=== PATIENT | female | born 1970 | race Caucasian/White ===

== ENCOUNTER 2016-11-11 18:37 | Emergency (ER) | payer MEDICAID ==
--- NOTE | 2016-11-11 19:16 | ER NURSING DOCUMENTATION ---
Nurse's Notes [facility] Name:Alis Coyle Age:45 yrs Sex:Female :1970 Arrival Date:11/11/2016 Time:18:37 Bed2 Private MD:Anil Garcia Diagnosis:Subconjunctival Hemorrhage (eye) Presentation: 11/11 18:42 Acuity: DENIS 3 sc1 19:08 Presenting complaint: Patient states: Pt poked herself in the left eye yesterday with rh her fake nail. Pt has subconjuctival hemorrhage. Transition of care: Home. The patient denies any loss of vision. 19:08 Method Of Arrival: Private Vehicle rh Triage Assessment: 19:10 General: Appears in no apparent distress, Behavior is cooperative. Pain: Denies pain. rh EENT: Eyes subconjuctival hemorrhage on the left eye. Sclera/Cornea are reddened in inner aspect of conjunctiva of left eye Oral mucosa is moist. Neuro: Level of Consciousness is awake, alert, obeys commands. Historical: - Allergies: No known drug Allergies; - Home Meds: 1. None - PMHx: HERNIATED DISC; - PSHx: None; - Tetanus: < 10 years. - Ebola Screening: : Patient negative for fever greater than or equal to 101.5 degrees Fahrenheit, and additional compatible Ebola Virus Disease symptoms. - Immunization history: Flu Vaccine None. - Social history: Smoking status: Patient states was never smoker of tobacco. Screenin:11 Infectious Disease Risk None. Abuse screen: Denies threats or abuse. Denies injuries rh from another. Nutritional screening: No deficits noted. Assessment: 19:11 See Triage Assessment done by same RN. rh Vital Signs: 18:48 BP 117 / 70; Pulse 97; Resp 14; Temp 98.2; Pulse Ox 90% on R/A; Weight 54.43 kg; Height em1 5 ft. 3 in. (160.02 cm); Pain 2/10; 18:48 Body Mass Index 21.26 (54.43 kg, 160.02 cm) em1 Visual Acuity: 19:11 Left Eye Visual acuity 20/30, ; Right Eye Visual acuity 20/40, ; Both Eyes Visual rh acuity 20/25; Without Lenses; ED Course: 18:38 Patient arrived in ED. em2 18:38 Anil Garcia is Private Physician. em2 18:42 Triage completed. ga1 19:00 Notified ED Physician of patient's arrival and chief complaint. Dr. Calloway notified. 19:02 Jose Calloway MD is Attending Physician. ga 19:04 Anil Garcia is Referral Physician. ga 19:08 Melva Hussein is Primary Nurse. rh 19:11 Valuables Given to family. Remains with patient Patient has correct armband on for rh positive identification. Bed in low position. Call light in reach. Administered Medications: No medications were administered Outcome: 19:04 Discharge ordered by . ga 19:15 Discharged to home ambulatory, with family. 19:15 Condition: stable 19:15 Discharge instructions given to patient, family, Instructed on discharge instructions, follow up and referral plans. Demonstrated understanding of instructions. 19:15 Patient left the ED. 05 09:30 Discharge F/U Call: Spoke with: patient. Are you having any pain? yes. Signatures: Ree English, RN RN [facility] [place] Agustina Perez, RN RN Jose Calloway MD MD ga [employer], [employer] 1 [employer], [facility]ene[employer] 2 Melva Hussein
--- NOTE | 2016-11-11 19:16 | ER PHYSICIAN DOCUMENTATION ---
Physician Documentation [facility] Name:Alis Coyle Age:45 yrs Sex:Female :1970 Arrival Date:11/11/2016 Time:18:37 Bed2 Private MD:Anil Garcia ED, [place] Disposition: 11/11/16 19:04 Discharged to Home/Self Care. Impression: Subconjunctival Hemorrhage (eye). - Condition is Good. - Discharge Instructions: SUBCONJUNCTIVAL HEMORRHAGE. - Medical Reconciliation form form. - Follow up: Anil Garcia; When: As needed; Reason: Worsening of condition. - Problem is new. - Symptoms are unchanged. HPI: 11/11 19:02 This 45 yrs old Female presents to ER with complaints of Eye Injury. sc 19:02 The patient is experiencing redness, The patient sustained contusion, to the left eye, sc caused by fingernail. Onset: The symptom(s)/episode began/occurred yesterday. Duration: the symptoms are continuous. Aggravated by nothing. Severity of symptoms: At their worst the symptoms were very mild. Historical: - Allergies: No known drug Allergies; - Home Meds: 1. None - PMHx: HERNIATED DISC; - PSHx: None; - Tetanus: < 10 years. - Ebola Screening: : Patient negative for fever greater than or equal to 101.5 degrees Fahrenheit, and additional compatible Ebola Virus Disease symptoms. - Immunization history: Flu Vaccine None. - Social history: Smoking status: Patient states was never smoker of tobacco. ROS: 19:03 Constitutional: Negative for fever, chills, and weight loss. sc ENT: Negative for injury, pain, and discharge. Neck: Negative for injury, pain, and swelling. Cardiovascular: Negative for chest pain, palpitations, and edema. Respiratory: Negative for shortness of breath, cough, wheezing, and pleuritic chest pain. Abdomen/GI: Negative for abdominal pain, nausea, vomiting, diarrhea, and constipation. Back: Negative for injury and pain. MS/Extremity: Negative for injury and deformity. Skin: Negative for injury, rash, and discoloration. 19:03 Neuro: Negative for headache, weakness, numbness, tingling, and seizure. sc 19:03 Eyes: Positive for injury or acute deformity. Exam: 19:03 Visual Acuity: I have reviewed the nursing documentation. Visual acuity is within ia normal limits. Constitutional: This is a well developed, well nourished patient who is awake, alert, and in no acute distress. Head/Face: Normocephalic, atraumatic. Skin: Warm, dry with normal turgor. Normal color with no rashes, no lesions, and no evidence of cellulitis. 19:03 Neuro: Awake and alert, GCS 15, oriented to person, place, time, and situation. Cranial nerves II-XII grossly intact. Motor strength 5/5 in all extremities. Sensory grossly intact. Cerebellar exam normal. Normal gait. 19:03 Eyes: Periorbital structures: appear normal, Pupils: equal, round, and reactive to light and accomodation, Extraocular movements: intact throughout, Conjunctiva: subconjunctival hemorrhage(s), seen in the left eye, Corneas: are normal, Sclera: no acute changes. Vital Signs: 18:48 BP 117 / 70; Pulse 97; Resp 14; Temp 98.2; Pulse Ox 90% on R/A; Weight 54.43 kg; Height em1 5 ft. 3 in. (160.02 cm); Pain 2/10; 18:48 Body Mass Index 21.26 (54.43 kg, 160.02 cm) em1 Visual Acuity: 19:11 Left Eye Visual acuity 20/30, ; Right Eye Visual acuity 20/40, ; Both Eyes Visual rh acuity 20/25; Without Lenses; MDM: 19:02 Patient medically screened. ia 19:04 Differential diagnosis: Corneal abrasion of Foreign body in subconjunctival hemorrhage. ia Data reviewed: vital signs, nurses notes, and as a result, I will discharge patient. Counseling: I had a detailed discussion with the patient and/or guardian regarding: the historical points, exam findings, and any diagnostic results supporting the discharge/admit diagnosis, to return to the emergency department if symptoms worsen or persist or if there are any questions or concerns that arise at home. Dispensed Medications: No medications were administered Signatures: Jose Calloway MD MD ia Melva Hussein
== END 2016-11-11 19:15 | disposition home or self-care (01) ==
LOC: ER 18:37
DX: H11.32 Conjunctival hemorrhage, left eye (principal); S00.11XA Contusion of right eyelid and periocular area, initial encounter; W22.8XXA Striking against or struck by other objects, initial encounter
CPT/HCPCS: 99282